=== PATIENT | male | born 2000 | race Asian ===

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

== ENCOUNTER → 2023-07-06 | Outpatient (CLI) | payer BC ==
[2023-07-06 12:13] LABS: Basophils # (auto) 0 10 ^3/uL (0-0.2); Basophils % (auto) 0.4 % (0.0-2.0); Eosinophils # (auto) 0.5 10 ^3/uL (0-0.8); Eosinophils % (auto) 8.9 % (0.0-7.0); Hematocrit 44.4 % (41.0-53.0); Hemoglobin 14.9 g/dL (13.5-17.5); Lymphocytes # (auto) 2.6 10 ^3/uL (0.4-5.4); Lymphocytes % (auto) 43.8 % (10.0-50.0); Mean Corpuscular Hemoglobin 28.6 pg (28.0-32.0); Mean Corpuscular Hgb Conc. 33.7 g/dL (32.0-36.0); Mean Corpuscular Volume 84.9 fL (80.0-100.0); Monocytes # (auto) 0.4 10 ^3/uL (0-1.3); Monocytes % (auto) 6.9 % (0.0-12.0); Neutrophils # (auto) 2.4 10 ^3/uL (1.6-8.6); Nucleated Red Blood Cells % 0.2 %; Red Blood Cells 5.22 10^6/uL (4.5-5.90); Red Cell Distribution Width 13.3 % (11.8-14.3); White Blood Cell 5.9 10^3/uL (4.4-10.8)
[2023-07-06 12:31] LABS: Urine Bacteria NONE SEEN /hpf (None Seen); Urine Blood Negative /uL (Negative); Urine Clarity Clear (Clear); Urine Color Yellow (Yellow); Urine Mucus FEW (None Seen); Urine Protein, UAD TRACE (Negative); Urine Specific Gravity 1.027 (1.001-1.035); Urine Urobilinogen Normal (Negative); Urine WBC 1 /hpf (0 - 3); Urine pH 5.5 (5.0-8.0)
[2023-07-06 12:39] LABS: Alanine Aminotransferase 34 U/L (7-40); Albumin 4.7 g/dL (3.2-4.8); Alkaline Phosphatase 72 U/L (46-116); Anion Gap 6 (5-15); Aspartate Aminotransferase 21 U/L (13-40); BUN/Creatinine Ratio 7.4 (10.0-20.0); Blood Urea Nitrogen 7 mg/dL (9-23); Calcium 9.5 mg/dL (8.5-10.1); Carbon Dioxide 29 mmol/L (20-30); Chloride 105 mmol/L (98-107); Cholesterol 181 mg/dL (< 200); Glucose 93 mg/dL (74-106); HDL Cholesterol 44 mg/dL (40-59); LDL Cholesterol 127 mg/dL (< 100); Potassium 3.9 mmol/L (3.5-5.1); Sodium 140 mmol/L (136-145); Triglycerides 108 mg/dL (< 150)
[2023-07-06 12:40] LABS: Bilirubin, Total 0.5 mg/dL (0.2-1.0); Total Protein 7.5 g/dL (5.7-8.2)
== END | disposition home or self-care (01) ==
LOC: LAB 11:53
PROVIDERS: ATTEND Internal Medicine
DX: Z00.00 Encounter for general adult medical examination without abnormal findings (principal); E55.9 Vitamin D deficiency, unspecified; E78.5 Hyperlipidemia, unspecified; D72.819 Decreased white blood cell count, unspecified
CPT/HCPCS: 36415; 80053; 80061; 81001; 82306; 82607; 83036; 85025

== ENCOUNTER → 2023-09-18 | Outpatient (CLI) | payer BC | END | disposition home or self-care (01) | LOC: LAB 12:45 | PROVIDERS: ATTEND Internal Medicine | DX: E55.9 Vitamin D deficiency, unspecified (principal) | CPT/HCPCS: 82306 ==

== ENCOUNTER 2024-10-20 08:24 | Emergency (ER) | payer BC ==
[~2024-10-20] VITALS: Ht 170.2 cm; Wt 75.6 kg
[2024-10-20 08:40] VITALS: BP 114/56; PULSE 81; RESP 16; TEMP 98.7; O2SAT 96
[2024-10-20] MEDS ORDERED: SUCR1SUS26 PO (09:00)
[2024-10-20] MEDS ORDERED: MAGIC MT (09:00)
--- NOTE | 2024-10-20 09:01 | ED.PDOC ---
Eye-HPI HPI Comments This is a pleasant 24-year-old male with no MHx that is brought in by mother with a chief complaint of a sore throat for the last six days. Symptoms are aggravated with swallowing saliva in his able to get temporary relief with [id number] ibuprofen. No other complaint or concern Denies chest pain shortness of breath Denies inability to move neck, history of meningitis Denies difficulty swallowing nor persistent salivation Denies fevers chills night sweats Denies persistent cough, runny nose, congestion Denies loss of appetite, unintentional weight loss over the past 3 months Denies voice changes Denies history of asthma or seasonal allergies Chief Complaint: Sore Throat Time Seen by MD: 08:36 Primary Care Provider: unknown Reviewed Notes: Nurses Notes, Medications, Allergies Allergies: Coded Allergies: NO KNOWN ALLERGIES (Unverified , 05/14/19) Home Meds No Active Prescriptions or Reported Meds Information Source: Patient, Relative (Mother) Mode of Arrival: Ambulatory Past Medical History PAST MEDICAL HISTORY: Denies Surgical History: Denies all surgeries Family History Family History: Reviewed,noncontributory to illness Social History Lives In: Home All Other Systems: Reviewed and Negative (per hpi) Physical Exam General Appearance: No Apparent Distress, Normal HEENT: Normal ENT Inspection, Pharynx Normal, TMs Normal, Other (Single 1 mm papulovesicular rash distributed to the posterior oropharynx. No uvular involvement. Moist mucous membranes.) Neck: Full Range of Motion, Non-Tender, Normal, Normal Inspection Respiratory: Chest Non-Tender, Lungs Clear, No Accessory Muscle Use, No Respiratory Distress, Normal Breath Sounds Cardiovascular: No Edema, No JVD, No Murmur, No Gallop, Normal Peripheral Pulses, Regular Rate/Rhythm Breast Exam: Deferred Gastrointestinal: No Organomegaly, Non Tender, No Pulsatile Mass, Normal Bowel Sounds, Soft Genitalia: Deferred Pelvic: Deferred Rectal: Deferred Extremities: No calf tenderness, Normal capillary refill, Normal inspection, Normal range of motion, Non-tender, No pedal edema Musculoskeletal : Apperance: Normal Neurologic: Alert, private inquiry agent II-XII nml as Tested, No Motor Deficits, Normal Affect, Normal Mood, No Sensory Deficits Cerebellar Function: Normal Reflexes: Normal Skin: Dry, Normal Color, Warm Lymphatic: No Adenopathy Was a procedure done? Was a procedure done?: No EENT DIFF Eye: Other X-Ray, Labs, Meds, VS Vital Signs Date Time Temp Pulse Resp B/P (MAP) Pulse Ox O2 Delivery O2 Flow Rate FiO2 10/20/24 08:40 81 16 96 Room Air 10/20/24 08:40 98.7 81 16 114/56 (75) 96 98.7 10/20/24 08:31 98.7 81 16 114/56 (75) 96 98.7 X-Ray, Labs, Meds, VS Comment Presentation consistent with aphthous ulcer VS HERPANGINA. No evidence of Wilfrido's Angina, large abscess pocket, or other complications. Provided prescription for Sucralfate solution; swish and spit . Advised on supportive cares. Patient informed to follow up with local provider if symptoms continue. Return to or go to ED if pain uncontrolled, drainage, high fevers, trouble swallowing, or other concerns. Advised Pt on supportive therapies, including avoidance of salty or sugary foods/coffee/citrus, refraining from biting inner cheeks, application of ice to lesions, gentle use of soft-bristle toothbrushes Time of 1ST Reevaluation: 08:56 Reevaluation 1ST: Improved Patient Education/Counseling: Diagnosis, Treatment Family Education/Counseling: Diagnosis, Treatment Departure 1 Departure Time of Disposition: 08:58 Impression: Primary Impression: Acute herpangina Disposition: 01 HOME / SELF CARE / HOMELESS Condition: Stable e-Prescriptions Alum & Mag Hydrox-Simethicone (Magic Mouthwash) 80 Ml Ss 80 ML MT TID for 3 Days, #200 ML 0 Refills Prov: CANDIDO WILSON NP 10/20/24 Sucralfate (CARAFATE SUSP) 1 Gm/10 Ml Ss 10 ML PO TID for 7 Days, #1200 ML 0 Refills SWISH AND SPIT FOR MOUTH ULCERS Prov: CANDIDO WILSON NP 10/20/24 Discharged With: Self Critical Care Note Critical Care Time?: No Stability Stability form required: No Heart Score Heart Score: Heart Score Response (Comments) Value History N/A 0 EKG N/A 0 Age N/A 0 Risk Factors N/A 0 Troponin N/A 0 Total 0 CANDIDO WILSON NP Oct 20, 2024 09:00
== END 2024-10-20 09:07 | disposition home or self-care (01) ==
LOC: ER 08:24
DX: B08.5 Enteroviral vesicular pharyngitis (principal)
CPT/HCPCS: 87070